=== PATIENT | female | born 2000 | race Caucasian/White ===

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

== ENCOUNTER 2022-01-10 04:50 | Emergency (ER) | payer BC, OTHER ==
[~2022-01-10] VITALS: Ht 165.1 cm; Wt 71.7 kg
--- NOTE | 2022-01-10 04:57 | NUR ---
Patient to ER bed 6 to gown for evaluation. Side rails up. Report given to Karlene LISA.
[2022-01-10 04:58] VITALS: BP_SYST 129
--- NOTE | 2022-01-10 05:30 | NUR ---
ER at bedside examining patient.
[2022-01-10] MEDS ORDERED: MORPHINE 4 MG INJ. 4 MG/ML VIAL IM ONE (06:00)
--- NOTE | 2022-01-10 06:05 | NUR ---
Pt ambulatory from home with c/o RUE pain that started while sleeping and progressed throughout the night. Pain is mostly to forearm area. Denies any injury/trauma to site. No acute signs of distress. Breathing adequately on RA.
--- NOTE | 2022-01-10 07:14 | NUR ---
Resume care from previous RN, pt here c/o RUE pain. Currently on gurney, lying left sided. S/p pain med administration. No N/V. Respiratory even unlabored, no acute distress. MD at bed side do eval.
[2022-01-10] MEDS ORDERED: ONDANSETRON 4 MG ODT TAB PO ONE (07:45)
--- NOTE | 2022-01-10 07:51 | NUR ---
Pt is AOx4, respiratory even, no acute distress. Denies pain med. No grimacing or moaning in pain. Nausea med given, pt tolerated. No emesis at this time. Pt is stable to be discharged home.
[2022-01-10 07:56] VITALS: BP_SYST 134
== END 2022-01-10 07:59 | disposition home or self-care (01) ==
LOC: SED 04:50
DX: M79.621 Pain in right upper arm (principal); M79.631 Pain in right forearm; M25.521 Pain in right elbow; Z79.899 Other long term (current) drug therapy
CPT/HCPCS: 99284; 71045; 73080; 73090; 96372; Q0162; J2270